=== PATIENT | female | born 1945 | race Caucasian/White ===

== ENCOUNTER 2019-10-01 06:25 | Inpatient (IN) | payer MEDICARE, OTHER ==
[~2019-10-01] VITALS: Ht 149.9 cm; Wt 79.1 kg
[~2019-10-01 06:25] MED LIST: CeFAZolin 2 GM/DEXTROSE 50 ML IV ONE; RINGERS SOLUTION,LACTATED 1,000 ML IV ONE
[2019-10-01] MEDS ORDERED: RINGERS SOLUTION,LACTATED 1,000 ML IV ONE ×2 (06:30→10:31)
[2019-10-01] MEDS ORDERED: CeFAZolin 2 GM/DEXTROSE 50 ML IV ONE (07:00)
[2019-10-01] MEDS ORDERED: ATOR40TA28 PO (07:16)
[2019-10-01] MEDS ORDERED: FELO5TAB PO (07:16)
[2019-10-01] MEDS ORDERED: BENZ-51 PO (07:16)
[2019-10-01] MEDS ORDERED: HYDR12.516 PO (07:16)
[2019-10-01] MEDS ORDERED: BUPIVACAINE LIPOSOME/PF 1.3%-13.3MG/ML SUSPENSION 20 ML VIAL INJ ONE (07:30)
[2019-10-01 07:31] LABS: BASOPHILS % (AUTO) 0.5 % (0.0-2.0); EOSINOPHILS % (AUTO) 3.2 % (1.0-6.0); HEMATOCRIT 42.9 % (36-46); HEMOGLOBIN 14.3 g/dL (12.0-16.0); LYMPHOCYTES # (AUTO) 1.6 K/uL (1.0-4.8); LYMPHOCYTES % (AUTO) 21.2 % (22.0-44.0); MEAN CORPUSCULAR HEMOGLOBIN 27.8 pg (26.0-34.0); MEAN CORPUSCULAR HGB CONC 33.2 G/dL (31.0-37.0); MEAN CORPUSCULAR VOLUME 84 fL (80-100); MONOCYTES # (AUTO) 0.8 K/uL (0.1-1.0); MONOCYTES % (AUTO) 10.5 % (2.0-9.0); NEUTROPHILS # (AUTO) 4.8 K/uL (1.8-7.7); NEUTROPHILS % (AUTO) 64.6 % (40.0-70.0); PLATELET COUNT (AUTO) 245 K/uL (150-450); RED BLOOD CELL COUNT(AUTO) 5.13 MIL/uL (4.00-5.20); RED CELL DISTRIBUTION WIDTH 14.6 % (11.5-14.5)
[2019-10-01 07:34] LABS: ANION GAP 8 mmol/L (8-16); CALCIUM, TOTAL 9.3 mg/dL (8.8-10.5); CARBON DIOXIDE 31 mmol/L (22-29); CHLORIDE 102 mmol/L (98-107); CREATININE 0.66 mg/dL (0.60-1.30); GLUCOSE,RANDOM 115 mg/dL (70-110); SODIUM SERUM 141 mmol/L (136-145); UREA NITROGEN, BLOOD 21 mg/dL (7-18)
[2019-10-01 07:40] LABS: POTASSIUM 2.9 mmol/L (3.5-5.1); PROTHROMBIN TIME 10.5 SEC (9.4-11.6)
[2019-10-01 07:41] LABS: GLOMERULAR FILTR. RATE CALC > 60 mL/min (>60)
[2019-10-01] MEDS ORDERED: NS IV ONE (07:45)
[2019-10-01] MEDS ORDERED: POTASSIUM CHL IV ONE (07:45)
[2019-10-01] MEDS ORDERED: ZOLPIDEM TARTRATE 10 MG TABLET PO PRN (08:00)
[2019-10-01] MEDS ORDERED: MAG HYDROX/AL HYDROX/SIMETH 30 ML SUSP UDCUP PO PRN (08:00)
[2019-10-01] MEDS ORDERED: BENZOCAINE/MENTHOL LOZENGE PO PRN (08:00)
[2019-10-01] MEDS ORDERED: DiphenhydrAMINE HCL 50 MG/ML VIAL IVP PRN (08:00)
[2019-10-01] MEDS: DOCUSATE SODIUM 100 MG CAPSULE PO SCH ×2 (09:00→20:00)
[2019-10-01] MEDS ORDERED: ACETAMINOPHEN 1000 MG/ISO-OSM 100 ML IV ONE (09:20)
[2019-10-01] MEDS ORDERED: OxyCODONE HCL 5 MG IR TABLET PO PRN (10:15)
[2019-10-01] MEDS ORDERED: ONDANSETRON HCL 4 MG/2 ML VIAL IVP PRN (10:15)
[2019-10-01] MEDS ORDERED: MEPERIDINE-PF 25 MG/ML VIAL IVP PRN (10:15)
[2019-10-01] MEDS ORDERED: FentaNYL CITRATE-PF 100 MCG/2 ML VIAL IVP PRN (10:15)
[2019-10-01] MEDS ORDERED: SUGAMMADEX SODIUM 200 MG/2 ML VIAL IVP ONE (10:31)
[2019-10-01] MEDS ORDERED: HYDR25TA PO (10:52)
[2019-10-01] MEDS ORDERED: HYDROmorphone 2 MG/ML SYRINGE ONE (11:50)
[2019-10-01] MEDS: HYDROmorphone 2 MG/ML SYRINGE IVP PRN ×3 (11:51→13:28)
[2019-10-01] MEDS ORDERED: LIDOCAINE/PF 2% 5 ML VIAL INJ ONE (12:00)
[2019-10-01] MEDS ORDERED: ONDANSETRON HCL 4 MG/2 ML VIAL IVP ONE (12:00)
[2019-10-01] MEDS ORDERED: FentaNYL CITRATE-PF 100 MCG/2 ML VIAL IVP ONE (12:00)
[2019-10-01] MEDS ORDERED: MORPHINE SULFATE 4 MG/ML SYRINGE IVP ONE (12:00)
[2019-10-01] MEDS ORDERED: PROPOFOL 1% 20 ML VIAL IVP ONE (12:00)
[2019-10-01] MEDS ORDERED: ROCURONIUM BROMIDE 10 MG/ML 5 ML VIAL IVP ONE (12:00)
[2019-10-01] MEDS ORDERED: EPHEDrine SULFATE 50 MG/ML VIAL IM ONE (12:00)
[2019-10-01] MEDS ORDERED: DEXAMETHASONE SOD PHOS 4 MG/ML VIAL IVP ONE (12:00)
[2019-10-01 13:15] VITALS: BP 120/59
[2019-10-01] MEDS: CYCLOBENZAPRINE HCL 10 MG TABLET PO PRN (13:28)
[2019-10-01] MEDS: ACETAMINOPHEN 1000 MG/ISO-OSM 100 ML IV SCH ×2 (14:22→20:42)
[2019-10-01 17:21] VITALS: BP 108/49
[2019-10-01 19:40] VITALS: BP 129/61
[2019-10-01 23:44] VITALS: BP 110/59
[2019-10-02] MEDS: ACETAMINOPHEN 1000 MG/ISO-OSM 100 ML IV SCH (02:35)
[2019-10-02 05:30] VITALS: BP 151/79
[2019-10-02 07:57] VITALS: BP 127/68
[2019-10-02] MEDS: OXYGEN THERAPY IH SCH (08:00)
[2019-10-02] MEDS: DOCUSATE SODIUM 100 MG CAPSULE PO SCH ×2 (08:15→19:49)
[2019-10-02] MEDS: HYDROmorphone 2 MG/ML SYRINGE IVP PRN ×2 (08:20→19:49)
[2019-10-02 11:27] VITALS: BP 113/64
[2019-10-02] MEDS: BISACODYL 10 MG RECTAL RECTAL SUPPOSITORY PR PRN (15:32)
[2019-10-02 16:10] VITALS: BP 150/75
[2019-10-02 19:50] VITALS: BP 148/76
[2019-10-02 23:30] VITALS: BP 144/74
[2019-10-03] MEDS: OxyCODONE HCL/ACETAMINOPHEN 10-325 MG TABLET PO PRN ×3 (02:12→21:51)
[2019-10-03 04:51] VITALS: BP 130/67
[2019-10-03 07:49] VITALS: BP 111/59
[2019-10-03] MEDS: OXYGEN THERAPY IH SCH (08:00)
[2019-10-03] MEDS: DOCUSATE SODIUM 100 MG CAPSULE PO SCH ×2 (08:17→21:00)
[2019-10-03] MEDS: CYCLOBENZAPRINE HCL 10 MG TABLET PO PRN (08:17)
[2019-10-03 10:22] LABS: BASOPHILS % (AUTO) 0.4 % (0.0-2.0); EOSINOPHILS % (AUTO) 0.7 % (1.0-6.0); HEMATOCRIT 38.5 % (36-46); HEMOGLOBIN 12.8 g/dL (12.0-16.0); LYMPHOCYTES % (AUTO) 10.1 % (22.0-44.0); MEAN CORPUSCULAR HEMOGLOBIN 28.3 pg (26.0-34.0); MEAN CORPUSCULAR HGB CONC 33.3 G/dL (31.0-37.0); MEAN CORPUSCULAR VOLUME 85 fL (80-100); MONOCYTES # (AUTO) 1.5 K/uL (0.1-1.0); MONOCYTES % (AUTO) 14.7 % (2.0-9.0); NEUTROPHILS # (AUTO) 7.6 K/uL (1.8-7.7); NEUTROPHILS % (AUTO) 74.1 % (40.0-70.0); PLATELET COUNT (AUTO) 196 K/uL (150-450); RED BLOOD CELL COUNT(AUTO) 4.54 MIL/uL (4.00-5.20); RED CELL DISTRIBUTION WIDTH 14.5 % (11.5-14.5)
[2019-10-03 10:37] LABS: ALANINE AMINOTRANSFERASE 30 U/L (12-78); ALBUMIN 2.9 g/dL (3.4-5.0); ALKALINE PHOSPHATASE 98 U/L (46-116); ANION GAP 1 mmol/L (8-16); ASPARTATE AMINOTRANSFERASE 28 U/L (15-37); BILIRUBIN,TOTAL 0.6 mg/dL (0.1-1.0); CALCIUM, TOTAL 8.5 mg/dL (8.8-10.5); CARBON DIOXIDE 34 mmol/L (22-29); CHLORIDE 102 mmol/L (98-107); GLUCOSE,RANDOM 126 mg/dL (70-110); POTASSIUM 3.7 mmol/L (3.5-5.1); SODIUM SERUM 137 mmol/L (136-145); TOTAL PROTEIN, SERUM 6.1 g/dL (6.4-8.2); UREA NITROGEN, BLOOD 16 mg/dL (7-18)
[2019-10-03 10:40] LABS: GLOMERULAR FILTR. RATE CALC > 60 mL/min (>60)
[2019-10-03 11:10] VITALS: BP 117/56
[2019-10-03] MEDS ORDERED: MINERAL OIL 133 ML ENEMA PR ONE (13:00)
[2019-10-03 15:20] VITALS: BP 120/58
[2019-10-03] MEDS ORDERED: MAGNESIUM HYDROXIDE SUSPENSION 30 ML UDCUP PO PRN (19:45)
[2019-10-03 21:00] VITALS: BP 137/62
[2019-10-03] MEDS ORDERED: MAG HYDROX/AL HYDROX/SIMETH 30 ML SUSP UDCUP PO PRN (21:00)
[2019-10-04 07:25] VITALS: BP 114/70
[2019-10-04] MEDS: OXYGEN THERAPY IH SCH (08:00)
[2019-10-04] MEDS: DOCUSATE SODIUM 100 MG CAPSULE PO SCH (08:59)
[2019-10-04] MEDS: BISACODYL 10 MG RECTAL RECTAL SUPPOSITORY PR PRN (08:59)
[2019-10-04] MEDS: CYCLOBENZAPRINE HCL 10 MG TABLET PO PRN (09:03)
[2019-10-04] MEDS ORDERED: ACETAMINOPHEN 500 MG TABLET PO PRN (10:30)
[2019-10-04 11:10] VITALS: BP 114/75
[2019-10-04] MEDS ORDERED: TraMADol HCL 50 MG TABLET PO PRN (11:45)
== END 2019-10-04 15:50 | disposition home or self-care (01) | DRG 460 ==
LOC: 6N 06:25 → 4E 08:10
PROVIDERS: ADMIT Orthopaedic Surgery Orthopaedic Surgery of the Spine; ATTEND Orthopaedic Surgery Orthopaedic Surgery of the Spine
PROC: 0SB20ZZ Excision of Lumbar Vertebral Disc, Open Approach (ICD-10-PCS; 2019-10-01)
PROC: 0SG00A0 Fusion of Lumbar Vertebral Joint with Interbody Fusion Device, Anterior Approach, Anterior Column, Open Approach (ICD-10-PCS; principal; 2019-10-01 09:30)
DX: M48.061 Spinal stenosis, lumbar region without neurogenic claudication (principal); K42.9 Umbilical hernia without obstruction or gangrene
CPT/HCPCS: 87081; 93005; 97116; 97162; 97165; 97530; 97535; C9290; G0378; J0131; J0690; J1100; J1170; J2270; J2405; J2704; J3010; J3480; J3490; J7120

== ENCOUNTER → 2021-01-01 | Outpatient (CLI) | payer MEDICARE, OTHER ==
[~2021-01-01] MED LIST changes: +ATOR40TA28 PO; +BENZ-51 PO; -CeFAZolin 2 GM/DEXTROSE 50 ML IV ONE; +FELO5TAB PO; +HYDR25TA2 PO; -RINGERS SOLUTION,LACTATED 1,000 ML IV ONE
== END | disposition home or self-care (01) ==
LOC: RADPV 10:39
PROVIDERS: ATTEND Specialist
DX: M19.071 Primary osteoarthritis, right ankle and foot (principal); M86.9 Osteomyelitis, unspecified; M25.774 Osteophyte, right foot; Z89.431 Acquired absence of right foot
CPT/HCPCS: 73660-TC